=== PATIENT | female | born 2000 | race African-American/Black ===

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

== ENCOUNTER 2020-10-31 18:46 | Emergency (ER) | payer MEDICAID, SELFPAY ==
[2020-08-11 13:18] VITALS: BMI 20.4
[2020-10-31 18:49] VITALS: BP 109/71; PULSE 81; RESP 17; TEMP 36.3; O2SAT 99; BMI 20.1
[2020-10-31 19:43] LABS: Bacteria 0 SEEN /hpf (None Seen); Squamous Epithelial Cells - UA 0 SEEN /hpf (5-10); White Blood Cells 0 SEEN /hpf (0-5)
[2020-10-31 19:47] LABS: Color, Urine Yellow (Yellow); Glucose, Dipstick Normal (Normal); Ketone-Dipstick Negative (Negative); Leukocyte Esterase-Dipstick 25 /ul (Negative); Nitrite-Dipstick Negative (Negative); Occult Blood-Urine 10 /ul (Negative); Protein-Dipstick Negative (Negative); Specific Gravity, Urine 1.015 (1.002-1.030); Urine Bilirubin Dipstick Negative (Negative); Urine Clarity Clear (Clear); Urine Urobilinogen Normal (Normal)
--- NOTE | 2020-10-31 19:49 | ED.VIS.GEN ---
History of Present Illness Chief Complaint: Abd Pain Informant: Patient Narrative: patient is a 20-year-old female presenting with chronic pelvic pain and abnormal vaginal bleeding. Patient states has had pelvic pain for years. She states it frequently switches sides. She states she is never had this evaluated. She states that she has been passing nickel sized blood clots over the past few days. She states she had heavier bleeding at work today. She denies any other symptoms. She notes she did have some dysuria last week but that has resolved. She notes that after her son was born in July 2019 she had Nexplanon placed. She had a removed because she was having difficulty gaining weight and was concerned it could be a side effect. Patient is now on Depo-Provera shots for contraceptive. She had her first shot about 3 months ago. She notes that she is continued to have a lot of the same symptoms. She notes that reports that she is having heavier vaginal bleeding today which is what brought her into the emergency room. She states she is concerned that she possibly could have cancer because she does have a family history of cancer. She notes 2 of her aunts have had breast cancer later in life. Patient was planning on following up with a tree trimming supervisor on Tuesday but felt that this was now emergent. She follows with Dr. Finley's practice. Patient states she has a lot of vaginal discomfort and because of this has not had intercourse in 2 months. She denies any abnormal vaginal discharge. She states she is not really concerned for any STIs. Past Medical History - Allergies and Home Meds Allergies/Adverse Reactions: Allergies No Known Allergies Allergy (Verified 10/31/20 18:48) Primary Care Physician: Sadia Lyles [employer]ER, [employer] [Nurse Practitioner] - Past Medical History: None Surgical History: noncontributory Smoking Status: Never smoker Review of Systems General: Denies: Chills, Fever, Sweats Eyes: Denies: Visual changes - bilaterally, Diplopia ENT: Denies: Rhinorrhea, Sore throat Cardiovascular: Denies: Chest pain, Palpitations Respiratory: Denies: Dyspnea, Cough, Dyspnea on exertion Gastrointestinal: Reports: Abdominal pain - pelvic . Denies: Nausea, Vomiting, Diarrhea, Melena, Hematochezia Genitourinary: Reports: Dysuria, - - vaginal bleeding . Denies: Hematuria, Frequency Musculoskeletal: Denies: Back pain, Extremity Pain Skin: Denies: Rash, Wounds Neurological: Denies: Headache, Weakness, Numbness Physical Exam Vital Signs/Narrative: Vital Signs Temp Pulse Resp BP Pulse Ox 10/31/20 18:49 97.3 F L 81 17 109/71 99 Inital Vital Signs reviewed: Yes General: Well nourished, Well developed, No Acute Distress Head: Normocephalic, Atraumatic Eyes: Perrl, EOMI ENT: Moist mucous membranes, No rhinorrhea Neck: Supple, Nontender Cardiovascular: Regular rate, Regular rhythm, No murmurs Respiratory: No distress, CTA bilaterally, Chest nontender Abdomen: Soft, Nontender, Nondistended, Normal bowel sounds. Negative for: Guarding, Rebound tenderness, Mass Back: Nontender, Normal Inspection. Negative for: CVA tenderness Extremities: Nontender, No edema Skin: Normal color, No rash Neurological: Alert, Oriented x3, Cranial nerves II-XII grossly intact, Normal Strength, Normal Sensation Psychological: Normal affect, Normal Mood Diagnostic/Tx/Re-eval Laboratory Data 10/31/20 10/31/20 10/31/20 19:30 20:10 20:10 WBC 5.0 RBC 4.45 Hgb 13.1 Hct 39.1 MCV 87.9 MCH 29.4 MCHC 33.5 RDW Std Deviation 39.7 RDW Coeff of Ab 12.4 Plt Count 231 MPV 9.7 Immature Gran % (Auto) 0.200 Neut % (Auto) 37.7 L Lymph % (Auto) 48.6 H [place] % (Auto) 11.1 H Eos % (Auto) 2.2 Baso % (Auto) 0.2 Absolute Neuts (auto) 1.9 L Absolute Lymphs (auto) 2.41 Nucleated RBC % 0 Sodium 139 Potassium 4.3 Chloride 107 Carbon Dioxide 30.0 Anion Gap 2 L BUN 10 Creatinine 1.01 Estim Creat Clear Calc 92.01 Est GFR (MDRD) Af Amer 90 Est GFR (MDRD) Non-Af 74 BUN/Creatinine Ratio 9.9 L Glucose 83 Calcium 8.9 Total Bilirubin 0.40 AST 20 ALT 29 Alkaline Phosphatase 57 Total Protein 7.6 Albumin 3.7 Globulin 3.9 Albumin/Globulin Ratio 0.9 Urine Color Yellow Urine Clarity Clear Urine pH 6.0 Ur Specific Baker 1.015 Urine Protein Negative Urine Glucose (UA) Normal Urine Ketones Negative Urine Occult Blood 10 H Urine Nitrite Negative Urine Bilirubin Negative Urine Urobilinogen Normal Ur Leukocyte Esterase 25 H Urine RBC 0-5 SEEN Urine WBC 0 SEEN Ur Squamous Epith Cells 0 SEEN Urine Bacteria 0 SEEN Urine Mucus RARE Urine Test Negative - Medical Decision Making Patient is evaluated for abnormal vaginal bleeding and chronic pelvic pain. She appears nontoxic in no acute distress. Her vital signs are normal. Her abdominal exam is benign. She has chronic pelvic pain and is not acutely changed I do not think she needs an emergent CT or ultrasound of her pelvis. She is not have any symptoms symptoms consistent with acute blood loss anemia such as lightheadedness, nausea or sweating.Urinalysis is not consistent with acute infection. test is negative. I am not concerned for ectopic or torsion as this pain is chronic. Patient does not have any significant electrolyte imbalance explain her presentation. She is instructed that she should follow-up with her tree trimming supervisor. She states she will call on Tuesday. Patient is counseled that I cannot screen her for things like breast cancer and uterine cancer in the ER and that she needs to follow-up with her tree trimming supervisor. Patient is counseled on signs and symptoms requiring return to the emergency room. Patient verbalizes agreement and understand this plan. Patient discharged home in stable and improved condition. ED Disposition - Plan for ED Patient: Disposition: Home or Assisted Living Diagnosis: Pelvic pain, Abnormal vaginal bleeding Instructions: ED Dysfunctional Uterine Bleeding, ED Pelvic Pain, Unknown Cause Referrals: Sadia Lyles NP, [employer] [Nurse Practitioner] -
[2020-10-31 19:53] LABS: Red Blood Cells-Urine 0-5 SEEN /hpf (0-5)
[2020-10-31 19:54] LABS: Mucous, Urine RARE /hpf (<or=2+)
[2020-10-31 19:55] LABS: Internal QC Validated? YES +Cl - CLEAR BKGD; Pregnancy, Urine Negative Negative
[2020-10-31 20:16] LABS: Absolute Lymphocyte Count 2.41 X10^3/uL (0.83-4.51); Absolute Neutrophil Count 1.9 X10^3/uL (2.0-7.7); Basophil# 0.01 X10^3/uL; Basophil% 0.2 % (0-1); Eosinophil# 0.11 X10^3/uL; Eosinophils% 2.2 % (0-5); Hematocrit 39.1 % (37-47); Hemoglobin 13.1 g/dL (12.0-15.0); Lymphocyte # 2.41 X10^3/ul (0.83-4.51); Lymphocyte % 48.6 % (19-41); Mean Corp Hgb Conc 33.5 g/dL (32-36); Mean Corpuscular Hgb 29.4 pg (27.0-32.0); Mean Corpuscular Volume 87.9 fL (81-99); Mean Platelet Vol. 9.7 fl (6.2-12.0); Monocyte# 0.55 X10^3/uL; Monocyte% 11.1 % (0-10); NRBC Flagged by Analyzer 0 % (0-5); Neutrophil # 1.87 X10^3/uL (2.7-7.7); Neutrophil % 37.7 % (47-70); Platelet Count 231 K/mm3 (150-450); RBC Distribution Width CV 12.4 % (11.6-14.6); RBC Distribution Width SD 39.7 fl (35.1-43.9); Red Blood Count 4.45 M/mm3 (4.2-5.4)
[2020-10-31 20:33] LABS: ALB/GLOB Ratio 0.9 RATIO (0.9-2.4); AST(SGOT) 20 U/L (15-37); Alanine Aminotransfer ALT/SGPT 29 U/L (13-56); Albumin, Serum 3.7 g/dL (3.2-5.0); Alkaline Phosphatase 57 U/L (45-117); Anion Gap 2 (5-15); BUN 10 mg/dL (7-18); BUN/Creat Ratio 9.9 RATIO (10-20); Calcium,Total 8.9 mg/dL (8.5-10.1); Chloride 107 mmol/L (98-107); Creatinine, Serum 1.01 mg/dL (0.55-1.02); EST Glomerular Filtration Rate 74 mL/min (>60); Est Glom Filt Rate - Afr Amer 90 mL/min (>60); Estimated Creatinine Clearance 92.01 ml/min; Globulin 3.9 g/dL (2.2-4.2); Glucose 83 mg/dL (74-106); Potassium 4.3 mmol/L (3.5-5.1); Protein, Total 7.6 g/dL (6.4-8.2); Sodium Level 139 mmol/L (136-145)
== END 2020-10-31 21:34 | disposition home or self-care (01) ==
PROVIDERS: Emergency Provider Emergency Medicine
DX: R10.2 Pelvic and perineal pain (principal); G89.29 Other chronic pain; N93.9 Abnormal uterine and vaginal bleeding, unspecified; Z80.3 Family history of malignant neoplasm of breast
CPT/HCPCS: 36415; 80053; 81001; 81025; 85025; 99282

== ENCOUNTER → 2020-11-03 13:03 | Outpatient (CLI) | payer MEDICAID, SELFPAY ==
[2020-11-03 10:53] VITALS: BMI 20.2
[2020-11-05 03:07] LABS: Chlamydia By Nucleic Acid AMP Negative (Negative)
[2020-11-05 12:45] LABS: Gonococcus By Nucleic Acid AMP Negative (Negative)
== END ==
PROVIDERS: Referring Provider Nurse Practitioner Women's Health; Visit Provider Nurse Practitioner Women's Health
DX: Z11.3 Encounter for screening for infections with a predominantly sexual mode of transmission (principal); R10.2 Pelvic and perineal pain
CPT/HCPCS: 87070; 87077; 87205; 87491; 87591

== ENCOUNTER → 2020-11-14 11:39 | Outpatient (CLI) | payer MEDICAID, SELFPAY ==
[2020-11-03 10:53] VITALS: BMI 20.2
--- NOTE | 2020-11-14 11:41 | US_ITS ---
STUDY: ULTRASOUND OF THE FEMALE PELVIS - COMPLETE REASON FOR EXAM: Female, 20 years old. Pain LMP: 11/01/2020. TECHNIQUE: Transabdominal and Transvaginal TECHNICAL QUALITY: Adequate. COMPARISON: Comparison is made with prior examination dated 04/09/2019. FINDINGS: The uterus is anteverted and is in a midline position. The uterus measures 9.3 cm x 7.3 cm x 4.5 cm. Normal uterine cervix. The endometrium measures 3.3 mm in thickness, and is hyperechoic. There is no demonstrated endometrial mass. There is no demonstrated myometrial mass. I.U.D. - The patient does not have an I.U.D. The right ovary is visualized. The right ovary measures 4.2 cm x 3.5 cm x 3.5 cm. There is no right ovarian cyst or ovarian mass. There is no visualized right adnexal mass or complex lesion. There is normal arterial and normal venous vascularity. The left ovary is visualized. The left ovary measures 2.9 cm x 2.4 cm x 1.8 cm. There is no left ovarian cyst or ovarian mass. There is no visualized left adnexal mass or complex lesion. There is normal arterial and normal venous vascularity. There is no fluid in the cul-de-sac. The pre void volume of the bladder was 332.5 ml. Polycystic ovary disease: No. US/Transvaginal Non- IMPRESSION: Normal female pelvis. Electronically Signed: Royer Anthony MD at 12:39 EDT , Service support ,
--- NOTE | 2020-11-14 11:41 | US_ITS ---
STUDY: ULTRASOUND OF THE FEMALE PELVIS - COMPLETE REASON FOR EXAM: Female, 20 years old. Pain LMP: 11/01/2020. TECHNIQUE: Transabdominal and Transvaginal TECHNICAL QUALITY: Adequate. COMPARISON: Comparison is made with prior examination dated 04/09/2019. FINDINGS: The uterus is anteverted and is in a midline position. The uterus measures 9.3 cm x 7.3 cm x 4.5 cm. Normal uterine cervix. The endometrium measures 3.3 mm in thickness, and is hyperechoic. There is no demonstrated endometrial mass. There is no demonstrated myometrial mass. I.U.D. - The patient does not have an I.U.D. The right ovary is visualized. The right ovary measures 4.2 cm x 3.5 cm x 3.5 cm. There is no right ovarian cyst or ovarian mass. There is no visualized right adnexal mass or complex lesion. There is normal arterial and normal venous vascularity. The left ovary is visualized. The left ovary measures 2.9 cm x 2.4 cm x 1.8 cm. There is no left ovarian cyst or ovarian mass. There is no visualized left adnexal mass or complex lesion. There is normal arterial and normal venous vascularity. There is no fluid in the cul-de-sac. The pre void volume of the bladder was 332.5 ml. Polycystic ovary disease: No. US/Pelvic (Non ) IMPRESSION: Normal female pelvis. Electronically Signed: Royer Anthony MD at 12:39 EDT , Service support ,
== END ==
PROVIDERS: Referring Provider Nurse Practitioner Women's Health; Visit Provider Nurse Practitioner Women's Health
DX: R10.2 Pelvic and perineal pain (principal)
CPT/HCPCS: 76830; 76856